=== PATIENT | female | born 1960 | race Caucasian/White ===

== ENCOUNTER 2017-03-18 17:30 | Emergency (ER) | payer OTHER ==
[~2017-03-18] VITALS: Ht 165.1 cm; Wt 66.8 kg
[2017-03-18 17:52] VITALS: BP 128/77
--- NOTE | 2017-03-18 18:00 | NUR ---
57/F BIB FAMILY C/O LACERATION TO RIGHT ULNAR SIDE WHILE WASHING A CUP---1/2 INCH LENGTH LAST TETANUS >10YRS.DENIES N/V/D; AAOX4 WITH EVEN AND STEADY GAIT; LUNGS CLEAR BL; HR EVEN AND REGULAR; PT DENIES ANY FEVER, CP, SOB, OR COUGH AT THIS TIME; PATIENT STATES PAIN OF 8/10 AT THIS TIME; VSS; PATIENT POSITIONED FOR COMFORT; HOB ELEVATED; BEDRAILS UP X2; BED DOWN. ER MD MADE AWARE OF PT STATUS.
--- NOTE | 2017-03-18 18:00 | NUR ---
Note undone in EDM - 03/18/17 at 1853 by [email or web address] 57/F BIB FAMILY C/O LACERATION TO RIGHT ULNAR SIDE WHILE WASHING A CUP---1/2 INCH LENGTH LAST TETANUS >10YRS.PATIENT PRESENTS TO ED WITH . PT STATES . DENIES N/V/D; SKIN IS PINK/WARM/DRY; AAOX4 WITH EVEN AND STEADY GAIT; LUNGS CLEAR BL; HR EVEN AND REGULAR; PT DENIES ANY FEVER, CP, SOB, OR COUGH AT THIS TIME; PATIENT STATES PAIN OF 0/10 AT THIS TIME; VSS; PATIENT POSITIONED FOR COMFORT; HOB ELEVATED; BEDRAILS UP X2; BED DOWN. ER MD MADE AWARE OF PT STATUS.
[2017-03-18] MEDS ORDERED: LIDOCAINE 1% 500 MG/50 ML VIAL INJ ONE (18:25)
[2017-03-18] MEDS ORDERED: LIDOCAINE 1% ED 50 ML ONE (18:31)
--- NOTE | 2017-03-18 18:50 | NUR ---
SUTURE WOUND DONE BY EDWIN UMANZOR
--- NOTE | 2017-03-18 19:15 | NUR ---
Pt report given to RAUDEL MILLER. . Transfer of care at this time.
--- NOTE | 2017-03-18 19:17 | NUR ---
PT TAKEN TO X [facility]
[2017-03-18 19:42] VITALS: BP 119/65
--- NOTE | 2017-03-18 19:42 | NUR ---
Patient discharged with v/s stable. Written and verbal after care instructions given and explained. Patient verbalized understanding. Ambulatory with steady gait. All questions addressed prior to discharge. Advised to follow up with PMD OR HERE FOR WOUND F/U IN 2-3 DAYS.
== END 2017-03-18 19:42 | disposition home or self-care (01) ==
LOC: MED 17:30
DX: S61.216A Laceration without foreign body of right little finger without damage to nail, initial encounter (principal); W45.8XXA Other foreign body or object entering through skin, initial encounter; Y93.89 Activity, other specified; Y92.89 Other specified places as the place of occurrence of the external cause; Y99.8 Other external cause status
CPT/HCPCS: 12001; 73140; 90471; 90715; 99284; J2001